=== PATIENT | male | born 1960 | race Caucasian/White ===

== ENCOUNTER 2023-01-09 01:04 | Inpatient (IN) | payer OTHER ==
[2023-01-09] VITALS (28 sets, daily range): BP systolic 76–108; PULSE 94–117; RESP 16–28; TEMP 97.5–101; O2SAT 99–100
[~2023-01-09] VITALS: Ht 162.6 cm; Wt 64.0 kg
[2023-01-09 02:11] LABS: BASOPHILS # (AUTO) 0.1 K/uL (0.0-0.2); BASOPHILS % (AUTO) 0.7 % (0.0-2.0); EOSINOPHILS # (AUTO) 0.2 K/uL (0.0-0.4); EOSINOPHILS % (AUTO) 1.2 % (0.0-4.0); HEMATOCRIT 31.4 % (36-54); LYMPHOCYTES # (AUTO) 4.6 K/uL (1.0-5.5); LYMPHOCYTES % (AUTO) 26.1 % (20.5-51.5); MEAN CORPUSCULAR HEMOGLOBIN 28 pg (27-31); MEAN CORPUSCULAR HGB CONC 32 % (32-36); MEAN CORPUSCULAR VOLUME 86 fL (79.0-98.0); MONOCYTES # (AUTO) 1.4 K/uL (0.0-1.0); MONOCYTES % (AUTO) 7.7 % (1.7-9.3); NEUTROPHILS # (AUTO) 11.4 K/uL (1.8-7.7); NEUTROPHILS % (AUTO) 64.3 % (40.0-70.0); PLATELET COUNT (AUTO) 395 K/uL (130-430); RED BLOOD CELL COUNT(AUTO) 3.65 MIL/uL (4.2-6.2); RED CELL DISTRIBUTION WIDTH 15.7 % (9.0-15.0); WHITE BLOOD COUNT (AUTO) 17.7 K/uL (4.8-10.8)
[2023-01-09] MEDS ORDERED: DOCU-144 GT (02:20)
[2023-01-09] MEDS ORDERED: SENN8.6T19 GT (02:20)
[2023-01-09] MEDS ORDERED: ATRMDI INH (02:20)
[2023-01-09] MEDS ORDERED: FOLI-43 GT (02:20)
[2023-01-09] MEDS ORDERED: LACT1TAB14 GT (02:20)
[2023-01-09] MEDS ORDERED: POLY17PO4 GT (02:20)
[2023-01-09] MEDS ORDERED: HYDR-3917 GT (02:20)
[2023-01-09] MEDS ORDERED: ZINC GT (02:20)
[2023-01-09] MEDS ORDERED: LIP40 GT (02:20)
[2023-01-09] MEDS ORDERED: ASCORBIC ACID GT (02:20)
[2023-01-09] MEDS ORDERED: TRAM50TA2 GT (02:20)
[2023-01-09] MEDS ORDERED: ALBU2.5V7 INH (02:20)
[2023-01-09] MEDS ORDERED: BACL20TA GT (02:20)
[2023-01-09] MEDS ORDERED: ACET-2051 GT (02:20)
[2023-01-09] MEDS ORDERED: MULT-1089 GT (02:20)
[2023-01-09] MEDS ORDERED: CARV3.1246 GT (02:20)
[2023-01-09] MEDS ORDERED: APIX5TAB GT (02:20)
[2023-01-09] MEDS ORDERED: LANS30CA53 GT (02:20)
[2023-01-09] MEDS ORDERED: MODA200T48 GT (02:20)
[2023-01-09] MEDS ORDERED: BISA10SU61 RC (02:20)
[2023-01-09] MEDS ORDERED: CARB15DR OP (02:20)
[2023-01-09] MEDS ORDERED: AMIN30LI2 GT (02:20)
[2023-01-09] MEDS ORDERED: ONDA-8 GT (02:20)
[2023-01-09 02:33] LABS: CALCIUM 8.1 mg/dL (8.4-11.0); CREATININE 0.56 mg/dL (0.55-1.30); POTASSIUM 4.3 mmol/L (3.5-5.1)
[2023-01-09 02:36] LABS: INR 1.1 (0.80-1.20); PROTHROMBIN TIME 11.6 SECS (9.5-12.5)
[2023-01-09 02:38] LABS: ALBUMIN 2.3 g/dL (3.4-4.8); TOTAL BILIRUBIN 0.3 mg/dL (0.0-1.0); TOTAL PROTEIN, SERUM 6.3 g/dL (6.4-8.3)
[2023-01-09] MEDS ORDERED: NACL 0.9% 1,000 ML IV ONE (03:00)
[2023-01-09 05:32] LABS: BASOPHILS # (AUTO) 0.2 K/uL (0.0-0.2); BASOPHILS % (AUTO) 0.8 % (0.0-2.0); EOSINOPHILS # (AUTO) 0.2 K/uL (0.0-0.4); EOSINOPHILS % (AUTO) 0.5 % (0.0-4.0); HEMATOCRIT 31.3 % (36-54); HEMOGLOBIN 9.7 g/dL (14.0-18.0); LYMPHOCYTES # (AUTO) 4.8 K/uL (1.0-5.5); MEAN CORPUSCULAR HEMOGLOBIN 27 pg (27-31); MEAN CORPUSCULAR HGB CONC 31 % (32-36); MEAN CORPUSCULAR VOLUME 87 fL (79.0-98.0); MONOCYTES # (AUTO) 1.7 K/uL (0.0-1.0); MONOCYTES % (AUTO) 6.1 % (1.7-9.3); NEUTROPHILS # (AUTO) 21.4 K/uL (1.8-7.7); NEUTROPHILS % (AUTO) 75.6 % (40.0-70.0); PLATELET COUNT (AUTO) 409 K/uL (130-430); RED BLOOD CELL COUNT(AUTO) 3.59 MIL/uL (4.2-6.2); RED CELL DISTRIBUTION WIDTH 15.7 % (9.0-15.0); WHITE BLOOD COUNT (AUTO) 28.4 K/uL (4.8-10.8)
[2023-01-09 06:08] LABS: BILIRUBIN,URINE NEGATIVE (NEGATIVE); BLOOD, URINE NEGATIVE (NEGATIVE); CLARITY/URINE Clear (CLEAR); COLOR,URINE YELLOW (YELLOW); GLUCOSE,URINE NEGATIVE (NEGATIVE); NITRITE, URINE NEGATIVE (NEGATIVE); PH,URINE 5.5 (5.0-8.0); PROTEIN URINE 1+ (NEGATIVE); UROBILINOGEN,URINE 0.2 (0.2-1.0)
[2023-01-09 06:09] LABS: KETONES,URINE TRACE (NEGATIVE); LEUKOCYTE ESTERASE ,URINE NEGATIVE (NEGATIVE)
[2023-01-09] MEDS: NACL 0.9% 1,000 ML IV SCH ×3 (06:18→21:09)
[2023-01-09 06:30] LABS: BACTERIA,URINE RARE /HPF (None Seen)
[2023-01-09] MEDS ORDERED: NOREPINEPHRINE BITARTRATE 4 MG in NS 246 ML IV PRN (07:00)
[2023-01-09] MEDS ORDERED: NS 1000 ML IV.SOLN IV ONE (07:00)
[2023-01-09] MEDS ORDERED: PANTOPRAZOLE SODIUM 40 MG/VIAL (PROTONIX) IVP SCH (08:00)
[2023-01-09] MEDS ORDERED: DOCUSATE SODIUM 100 MG CAPSULE PO PRN (08:15)
[2023-01-09] MEDS ORDERED: MORPHINE 2 MG/ML INJ. SYRINGE IVP PRN ×2 (08:15)
[2023-01-09] MEDS ORDERED: LORazepam 2 MG/ML VIAL IVP PRN (08:15)
[2023-01-09] MEDS ORDERED: NALOXONE HCL 0.4 MG/ML AMP (NARCAN) IVP PRN ×2 (08:15)
[2023-01-09] MEDS ORDERED: ZOLPIDEM TARTRATE 5 MG TABLET PO PRN (08:15)
[2023-01-09] MEDS ORDERED: MUPIROCIN 2% TOPICAL OINTMENT 22 GM NS PRN (08:15)
[2023-01-09] MEDS ORDERED: MAGNESIUM SULFATE 50 ML IV PRN (08:15)
[2023-01-09] MEDS ORDERED: ONDANSETRON HCL 4 MG/2 ML VIAL IVP PRN (08:15)
[2023-01-09] MEDS ORDERED: NOREPINEPHRINE BITARTRATE 8 MG in NS 246 ML IV PRN (09:30)
[2023-01-09] MEDS ORDERED: PANTOPRAZOLE SODIUM 40 MG/VIAL (PROTONIX) ONE (09:39)
[2023-01-09 10:23] LABS: HEMATOCRIT 26.1 % (36-54); HEMOGLOBIN 8.2 g/dL (14.0-18.0); MEAN CORPUSCULAR HEMOGLOBIN 27 pg (27-31); MEAN CORPUSCULAR HGB CONC 31 % (32-36); MEAN CORPUSCULAR VOLUME 87 fL (79.0-98.0); PLATELET COUNT (AUTO) 396 K/uL (130-430); RED CELL DISTRIBUTION WIDTH 15.8 % (9.0-15.0)
[2023-01-09] MEDS: PANTOPRAZOLE SODIUM 40 MG in NS 50 ML IV SCH ×4 (10:25→22:42)
[2023-01-09] MEDS: PIPERACILLIN/TAZO 3.375/DEX-IS 50 ML IV SCH ×3 (10:26→22:43)
[2023-01-09 10:35] LABS: INR 1.2 (0.80-1.20); PROTHROMBIN TIME 12.1 SECS (9.5-12.5)
[2023-01-09 11:18] LABS: EOSINOPHILS % (MANUAL) 0 % (0-7)
[2023-01-09 11:19] LABS: BASOPHILS % (MANUAL) 0 % (0-2); LYMPHOCYTES % (MANUAL) 15 % (20-46); MONOCYTES % (MANUAL) 3 % (0-11); PLATELET ESTIMATE ADEQUATE (ADEQUATE)
[2023-01-09] MEDS: VANCOMYCIN HCL 1,000 MG in NS 250 ML IV SCH ×2 (11:45→22:42)
[2023-01-09 12:49] LABS: BASOPHILS # (AUTO) 0.1 K/uL (0.0-0.2); BASOPHILS % (AUTO) 0.4 % (0.0-2.0); EOSINOPHILS % (AUTO) 0.2 % (0.0-4.0); HEMATOCRIT 25.5 % (36-54); LYMPHOCYTES # (AUTO) 3.5 K/uL (1.0-5.5); LYMPHOCYTES % (AUTO) 16.7 % (20.5-51.5); MEAN CORPUSCULAR HEMOGLOBIN 27 pg (27-31); MEAN CORPUSCULAR HGB CONC 31 % (32-36); MEAN CORPUSCULAR VOLUME 87 fL (79.0-98.0); MONOCYTES # (AUTO) 1.2 K/uL (0.0-1.0); MONOCYTES % (AUTO) 5.9 % (1.7-9.3); NEUTROPHILS # (AUTO) 16.2 K/uL (1.8-7.7); PLATELET COUNT (AUTO) 401 K/uL (130-430); RED BLOOD CELL COUNT(AUTO) 2.95 MIL/uL (4.2-6.2); RED CELL DISTRIBUTION WIDTH 16.2 % (9.0-15.0)
[2023-01-09 12:50] LABS: NEUTROPHILS % (AUTO) 76.8 % (40.0-70.0)
[2023-01-09] MEDS: NOREPINEPHRINE BITARTRATE 8 MG in NS 242 ML IV PRN (13:49)
[2023-01-09] MEDS ORDERED: IOHEXOL 350 mgI/mL, 150 ML INFUS..BTL IV ONE (13:52)
[2023-01-09] MEDS: ACETAMINOPHEN 325 MG TABLET PO PRN (19:40)
[2023-01-10] VITALS (35 sets, daily range): BP systolic 100–128; PULSE 98–119; RESP 16–30; TEMP 98.7–101.5; O2SAT 98–100
[2023-01-10] MEDS ORDERED: NOREPINEPHRINE 4 MG/4 ML VIAL IV ONE (00:54)
[2023-01-10] MEDS: PANTOPRAZOLE SODIUM 40 MG in NS 50 ML IV SCH ×3 (02:50→13:09)
[2023-01-10] MEDS: PIPERACILLIN/TAZO 3.375/DEX-IS 50 ML IV SCH ×4 (03:00→22:27)
[2023-01-10 05:52] LABS: BASOPHILS # (AUTO) 0.1 K/uL (0.0-0.2); BASOPHILS % (AUTO) 0.9 % (0.0-2.0); EOSINOPHILS # (AUTO) 0.1 K/uL (0.0-0.4); EOSINOPHILS % (AUTO) 0.4 % (0.0-4.0); LYMPHOCYTES # (AUTO) 3.9 K/uL (1.0-5.5); LYMPHOCYTES % (AUTO) 22.2 % (20.5-51.5); MEAN CORPUSCULAR HEMOGLOBIN 27 pg (27-31); MEAN CORPUSCULAR HGB CONC 32 % (32-36); MEAN CORPUSCULAR VOLUME 87 fL (79.0-98.0); MONOCYTES # (AUTO) 1.2 K/uL (0.0-1.0); MONOCYTES % (AUTO) 6.9 % (1.7-9.3); NEUTROPHILS # (AUTO) 12.1 K/uL (1.8-7.7); NEUTROPHILS % (AUTO) 69.6 % (40.0-70.0); PLATELET COUNT (AUTO) 330 K/uL (130-430); RED CELL DISTRIBUTION WIDTH 16.1 % (9.0-15.0); WHITE BLOOD COUNT (AUTO) 17.3 K/uL (4.8-10.8)
[2023-01-10 06:08] LABS: CALCIUM 7.3 mg/dL (8.4-11.0); CREATININE 0.47 mg/dL (0.55-1.30); POTASSIUM 3.5 mmol/L (3.5-5.1)
[2023-01-10 06:11] LABS: HEMATOCRIT 21.8 % (36-54); HEMOGLOBIN 6.9 g/dL (14.0-18.0)
[2023-01-10] MEDS: ACETAMINOPHEN 325 MG TABLET PO PRN (07:46)
[2023-01-10] MEDS: VANCOMYCIN HCL 1,000 MG in NS 250 ML IV SCH (10:41)
[2023-01-10] MEDS: NACL 0.9% 1,000 ML IV SCH (11:00)
[2023-01-10] MEDS: NOREPINEPHRINE BITARTRATE 8 MG in NS 242 ML IV PRN (22:28)
[2023-01-11] VITALS (37 sets, daily range): BP systolic 90–126; PULSE 80–108; RESP 10–30; TEMP 98.7–101.1; O2SAT 98–100
[2023-01-11] MEDS: PANTOPRAZOLE SODIUM 40 MG in NS 50 ML IV SCH ×6 (00:26→21:12)
[2023-01-11] MEDS: VANCOMYCIN HCL 1,000 MG in NS 250 ML IV SCH ×2 (00:28→11:02)
[2023-01-11] MEDS: NACL 0.9% 1,000 ML IV SCH ×3 (00:30→19:12)
[2023-01-11] MEDS: PIPERACILLIN/TAZO 3.375/DEX-IS 50 ML IV SCH ×4 (03:19→21:13)
[2023-01-11 06:06] LABS: BASOPHILS # (AUTO) 0.1 K/uL (0.0-0.2); BASOPHILS % (AUTO) 0.5 % (0.0-2.0); EOSINOPHILS # (AUTO) 0.1 K/uL (0.0-0.4); EOSINOPHILS % (AUTO) 0.5 % (0.0-4.0); HEMATOCRIT 25.1 % (36-54); HEMOGLOBIN 7.9 g/dL (14.0-18.0); LYMPHOCYTES # (AUTO) 3.7 K/uL (1.0-5.5); LYMPHOCYTES % (AUTO) 20.4 % (20.5-51.5); MEAN CORPUSCULAR HEMOGLOBIN 28 pg (27-31); MEAN CORPUSCULAR HGB CONC 32 % (32-36); MEAN CORPUSCULAR VOLUME 89 fL (79.0-98.0); MONOCYTES # (AUTO) 1.6 K/uL (0.0-1.0); MONOCYTES % (AUTO) 8.6 % (1.7-9.3); NEUTROPHILS # (AUTO) 12.8 K/uL (1.8-7.7); PLATELET COUNT (AUTO) 313 K/uL (130-430); RED BLOOD CELL COUNT(AUTO) 2.81 MIL/uL (4.2-6.2); RED CELL DISTRIBUTION WIDTH 16.1 % (9.0-15.0); WHITE BLOOD COUNT (AUTO) 18.2 K/uL (4.8-10.8)
[2023-01-11 06:28] LABS: CALCIUM 7.3 mg/dL (8.4-11.0); CREATININE 0.46 mg/dL (0.55-1.30); POTASSIUM 3.3 mmol/L (3.5-5.1); TOTAL BILIRUBIN 0.4 mg/dL (0.0-1.0); TOTAL PROTEIN, SERUM 5.2 g/dL (6.4-8.3)
[2023-01-11] MEDS: ACETAMINOPHEN 325 MG TABLET PO PRN (11:01)
[2023-01-11] MEDS: NOREPINEPHRINE BITARTRATE 8 MG in NS 242 ML IV PRN (15:44)
[2023-01-11] MEDS ORDERED: VANCOMYCIN HCL 750 MG in NS 250 ML IV SCH (19:00)
[2023-01-12] VITALS (37 sets, daily range): BP systolic 86–121; PULSE 72–103; RESP 14–33; TEMP 98.1–99; O2SAT 95–100
[2023-01-12] MEDS: PANTOPRAZOLE SODIUM 40 MG in NS 50 ML IV SCH ×5 (02:21→21:41)
[2023-01-12] MEDS: NACL 0.9% 1,000 ML IV SCH ×2 (04:02→16:04)
[2023-01-12] MEDS: PIPERACILLIN/TAZO 3.375/DEX-IS 50 ML IV SCH ×4 (04:03→21:41)
[2023-01-12 04:11] LABS: BASOPHILS # (AUTO) 0.1 K/uL (0.0-0.2); BASOPHILS % (AUTO) 0.4 % (0.0-2.0); EOSINOPHILS # (AUTO) 0.1 K/uL (0.0-0.4); EOSINOPHILS % (AUTO) 0.4 % (0.0-4.0); HEMOGLOBIN 7.7 g/dL (14.0-18.0); LYMPHOCYTES # (AUTO) 3.3 K/uL (1.0-5.5); LYMPHOCYTES % (AUTO) 21.6 % (20.5-51.5); MEAN CORPUSCULAR HEMOGLOBIN 28 pg (27-31); MEAN CORPUSCULAR HGB CONC 31 % (32-36); MEAN CORPUSCULAR VOLUME 89 fL (79.0-98.0); MONOCYTES # (AUTO) 1.1 K/uL (0.0-1.0); MONOCYTES % (AUTO) 7.1 % (1.7-9.3); NEUTROPHILS # (AUTO) 10.7 K/uL (1.8-7.7); NEUTROPHILS % (AUTO) 70.5 % (40.0-70.0); PLATELET COUNT (AUTO) 314 K/uL (130-430); RED CELL DISTRIBUTION WIDTH 16.4 % (9.0-15.0); WHITE BLOOD COUNT (AUTO) 15.2 K/uL (4.8-10.8)
[2023-01-12 04:29] LABS: CALCIUM 7.4 mg/dL (8.4-11.0); CREATININE 0.34 mg/dL (0.55-1.30)
[2023-01-12 05:14] LABS: POTASSIUM 2.9 mmol/L (3.5-5.1)
[2023-01-12] MEDS: POTASSIUM CHLORIDE 20 MEQ TAB.PRT.SR PO PRN (09:15)
[2023-01-12] MEDS ORDERED: FUROSEMIDE 20 MG/2 ML VIAL IVP ONE (10:45)
[2023-01-12 11:33] LABS: ABG O2 SAT% ESTIMATE 98.6 % (94.0-100.0); BLOOD GAS BASE EXCESS -1.2 mmol/L (-3.0-3.0); BLOOD GAS HCO3 20.3 mmol/L (21.0-27.0); BLOOD GAS PCO2 26.5 mmHg (32.0-45.0); BLOOD GAS PO2 115.2 mmHg (75.0-100.0)
[2023-01-12 11:37] LABS: ALLEN'S TEST POSITIVE (P); BLOOD GAS PH 7.502 (7.350-7.450)
[2023-01-12] MEDS ORDERED: FUROSEMIDE 20 MG/2 ML VIAL ONE (11:46)
[2023-01-13] VITALS (35 sets, daily range): BP systolic 94–115; PULSE 86–101; RESP 19–27; TEMP 98–98.6; O2SAT 99–100
[2023-01-13] MEDS: NACL 0.9% 1,000 ML IV SCH ×3 (01:01→21:00)
[2023-01-13] MEDS: PANTOPRAZOLE SODIUM 40 MG in NS 50 ML IV SCH ×4 (02:15→18:25)
[2023-01-13] MEDS: PIPERACILLIN/TAZO 3.375/DEX-IS 50 ML IV SCH ×4 (03:45→22:00)
[2023-01-13 04:57] LABS: BASOPHILS # (AUTO) 0.2 K/uL (0.0-0.2); BASOPHILS % (AUTO) 1.6 % (0.0-2.0); EOSINOPHILS # (AUTO) 0.1 K/uL (0.0-0.4); EOSINOPHILS % (AUTO) 0.8 % (0.0-4.0); HEMATOCRIT 24.8 % (36-54); HEMOGLOBIN 7.8 g/dL (14.0-18.0); LYMPHOCYTES # (AUTO) 2.6 K/uL (1.0-5.5); LYMPHOCYTES % (AUTO) 19.4 % (20.5-51.5); MEAN CORPUSCULAR HEMOGLOBIN 28 pg (27-31); MEAN CORPUSCULAR HGB CONC 31 % (32-36); MEAN CORPUSCULAR VOLUME 89 fL (79.0-98.0); MONOCYTES # (AUTO) 0.6 K/uL (0.0-1.0); MONOCYTES % (AUTO) 4.2 % (1.7-9.3); PLATELET COUNT (AUTO) 312 K/uL (130-430); RED BLOOD CELL COUNT(AUTO) 2.79 MIL/uL (4.2-6.2); RED CELL DISTRIBUTION WIDTH 16.2 % (9.0-15.0); WHITE BLOOD COUNT (AUTO) 13.5 K/uL (4.8-10.8)
[2023-01-13 05:14] LABS: CALCIUM 7.3 mg/dL (8.4-11.0); CREATININE 0.38 mg/dL (0.55-1.30)
[2023-01-13 05:49] LABS: POTASSIUM 2.8 mmol/L (3.5-5.1)
[2023-01-13] MEDS: POTASSIUM CHLORIDE 20 MEQ TAB.PRT.SR PO PRN (05:54)
[2023-01-13] MEDS ORDERED: ALBUMIN HUMAN 25% 50 ML IV ONE (09:15)
[2023-01-14] VITALS (34 sets, daily range): BP systolic 86–130; PULSE 82–100; RESP 18–34; TEMP 97.9–98.3; O2SAT 95–100
[2023-01-14] MEDS: PANTOPRAZOLE SODIUM 40 MG in NS 50 ML IV SCH ×5 (00:48→18:29)
[2023-01-14] MEDS: PIPERACILLIN/TAZO 3.375/DEX-IS 50 ML IV SCH ×4 (03:18→20:35)
[2023-01-14 05:03] LABS: BASOPHILS % (AUTO) 0.4 % (0.0-2.0); EOSINOPHILS # (AUTO) 0.1 K/uL (0.0-0.4); EOSINOPHILS % (AUTO) 1.2 % (0.0-4.0); HEMATOCRIT 24.7 % (36-54); HEMOGLOBIN 7.7 g/dL (14.0-18.0); LYMPHOCYTES # (AUTO) 2.8 K/uL (1.0-5.5); LYMPHOCYTES % (AUTO) 25.1 % (20.5-51.5); MEAN CORPUSCULAR HEMOGLOBIN 28 pg (27-31); MEAN CORPUSCULAR HGB CONC 31 % (32-36); MEAN CORPUSCULAR VOLUME 90 fL (79.0-98.0); MONOCYTES # (AUTO) 0.6 K/uL (0.0-1.0); MONOCYTES % (AUTO) 5.4 % (1.7-9.3); NEUTROPHILS # (AUTO) 7.6 K/uL (1.8-7.7); NEUTROPHILS % (AUTO) 67.9 % (40.0-70.0); PLATELET COUNT (AUTO) 307 K/uL (130-430); RED BLOOD CELL COUNT(AUTO) 2.74 MIL/uL (4.2-6.2); RED CELL DISTRIBUTION WIDTH 16.9 % (9.0-15.0); WHITE BLOOD COUNT (AUTO) 11.2 K/uL (4.8-10.8)
[2023-01-14 05:18] LABS: CALCIUM 7.6 mg/dL (8.4-11.0); CREATININE 0.23 mg/dL (0.55-1.30)
[2023-01-14] MEDS: NACL 0.9% 1,000 ML IV SCH ×2 (07:22→16:35)
[2023-01-14] MEDS: POTASSIUM CHLORIDE 20 MEQ TAB.PRT.SR PO PRN (09:25)
[2023-01-14] MEDS ORDERED: BISACODYL 5 MG TABLET.DR (DULCOLAX) PO ONE (17:00)
[2023-01-14] MEDS ORDERED: GOLYTELY / COLYTE SOLUTION 4 LITERS PO ONE (18:00)
[2023-01-15] VITALS (15 sets, daily range): BP systolic 97–123; PULSE 70–105; RESP 18–21; TEMP 97.6–98.6; O2SAT 95–100
[2023-01-15] MEDS: PANTOPRAZOLE SODIUM 40 MG in NS 50 ML IV SCH ×4 (00:34→16:27)
[2023-01-15] MEDS: NACL 0.9% 1,000 ML IV SCH ×2 (00:35→11:45)
[2023-01-15] MEDS: PIPERACILLIN/TAZO 3.375/DEX-IS 50 ML IV SCH ×2 (03:53→10:03)
[2023-01-15 05:08] LABS: BASOPHILS % (AUTO) 0.3 % (0.0-2.0); EOSINOPHILS # (AUTO) 0.1 K/uL (0.0-0.4); EOSINOPHILS % (AUTO) 1.2 % (0.0-4.0); HEMATOCRIT 26.8 % (36-54); HEMOGLOBIN 8.4 g/dL (14.0-18.0); LYMPHOCYTES # (AUTO) 2.5 K/uL (1.0-5.5); LYMPHOCYTES % (AUTO) 21.4 % (20.5-51.5); MEAN CORPUSCULAR HEMOGLOBIN 28 pg (27-31); MEAN CORPUSCULAR HGB CONC 31 % (32-36); MEAN CORPUSCULAR VOLUME 90 fL (79.0-98.0); MONOCYTES # (AUTO) 0.6 K/uL (0.0-1.0); MONOCYTES % (AUTO) 4.9 % (1.7-9.3); NEUTROPHILS # (AUTO) 8.3 K/uL (1.8-7.7); NEUTROPHILS % (AUTO) 72.2 % (40.0-70.0); PLATELET COUNT (AUTO) 337 K/uL (130-430); RED BLOOD CELL COUNT(AUTO) 2.97 MIL/uL (4.2-6.2); RED CELL DISTRIBUTION WIDTH 16.9 % (9.0-15.0); WHITE BLOOD COUNT (AUTO) 11.5 K/uL (4.8-10.8)
[2023-01-15 05:39] LABS: CALCIUM 7.6 mg/dL (8.4-11.0); CREATININE 0.27 mg/dL (0.55-1.30)
[2023-01-15 06:11] LABS: INR 1.2 (0.80-1.20)
[2023-01-15 06:13] LABS: POTASSIUM 2.7 mmol/L (3.5-5.1)
[2023-01-15] MEDS ORDERED: POTASSIUM CHLORIDE 20 MEQ TAB.PRT.SR PO ONE (07:15)
[2023-01-15] MEDS ORDERED: POTASSIUM CHLORIDE 40 MEQ in 0.45% NS 250 ML IV ONE (08:15)
[2023-01-15 09:56] LABS: POTASSIUM 3.2 mmol/L (3.5-5.1)
[2023-01-15] MEDS ORDERED: PIPERACILLIN/TAZO 3.375/DEX-IS 50 ML IV SCH (10:00)
[2023-01-15] MEDS ORDERED: MIDAZOLAM HCL 5 MG/5 ML VIAL ONE (11:10)
[2023-01-15] MEDS ORDERED: MEPERIDINE 100 MG INJ. 100 MG/ML VIAL ONE (11:10)
[2023-01-15] MEDS ORDERED: SIMETHICONE 40 MG/0.6 ML ML ONE (11:11)
[2023-01-15] MEDS ORDERED: PRO40 GT (12:49)
[2023-01-15] MEDS ORDERED: CEFT2PIG5 IV (12:51)
[2023-01-15] MEDS ORDERED: CEFTAZIDIME 2 GM in D5W 100 ML IV SCH (21:00)
== END 2023-01-15 19:30 | DRG 720 ==
LOC: SED 01:04 → SIC 05:34 → STU 01-15 05:11
PROVIDERS: ADMIT General Practice; ATTEND General Practice
PROC: 5A1955Z Respiratory Ventilation, Greater than 96 Consecutive Hours (ICD-10-PCS; principal; 2023-01-09)
PROC: 02HV33Z Insertion of Infusion Device into Superior Vena Cava, Percutaneous Approach (ICD-10-PCS; 2023-01-09)
PROC: B548ZZA Ultrasonography of Superior Vena Cava, Guidance (ICD-10-PCS; 2023-01-09)
PROC: 30233N1 Transfusion of Nonautologous Red Blood Cells into Peripheral Vein, Percutaneous Approach (ICD-10-PCS; 2023-01-10)
PROC: 0DJD8ZZ Inspection of Lower Intestinal Tract, Via Natural or Artificial Opening Endoscopic (ICD-10-PCS; 2023-01-15)
PROC: 0DB78ZX Excision of Stomach, Pylorus, Via Natural or Artificial Opening Endoscopic, Diagnostic (ICD-10-PCS; 2023-01-15 11:00)
DX: A41.9 Sepsis, unspecified organism (principal); J96.20 Acute and chronic respiratory failure, unspecified whether with hypoxia or hypercapnia; R57.1 Hypovolemic shock; R65.21 Severe sepsis with septic shock; J18.9 Pneumonia, unspecified organism; K29.71 Gastritis, unspecified, with bleeding; J44.9 Chronic obstructive pulmonary disease, unspecified; G93.41 Metabolic encephalopathy; K62.6 Ulcer of anus and rectum; N39.0 Urinary tract infection, site not specified; E78.5 Hyperlipidemia, unspecified; R13.10 Dysphagia, unspecified; K64.8 Other hemorrhoids; K44.9 Diaphragmatic hernia without obstruction or gangrene; G40.909 Epilepsy, unspecified, not intractable, without status epilepticus; D64.9 Anemia, unspecified; Z93.0 Tracheostomy status; Z99.11 Dependence on respirator [ventilator] status; Z93.1 Gastrostomy status; Z86.73 Personal history of transient ischemic attack (TIA), and cerebral infarction without residual deficits; Z79.01 Long term (current) use of anticoagulants; Z74.01 Bed confinement status; Z79.1 Long term (current) use of non-steroidal anti-inflammatories (NSAID); Z79.899 Other long term (current) drug therapy
CPT/HCPCS: 36415; 36600; 43239; 45378; 71045; 72191; 74175; 76376; 76705; 80048; 80053; 80202; 81000; 82803; 83037; 83605; 83735; 84132; 85007; 85025; 85027; 85610-TC; 85730-TC; 86886; 86900; 86901; 86920; 87040; 87070-TC; 87081; 87086; 87205-TC; 88305; 88312; 88313; 93005; 94003; 94640; 94760; 99291; A6209; C1751; C9113; J0713; J1940; J2175; J2250; J2543; J3370; J3480; J7030; J7050; J7060; P9021; P9046; Q9967